=== PATIENT | female | born 1935 | race Caucasian/White ===

== ENCOUNTER → 2020-05-27 | Outpatient (REF) | payer BC, MEDICARE, OTHER ==
--- NOTE | 2020-05-31 11:35 | REP ---
SACRUM AND COCCYX: 3-VIEWS HISTORY: Low back pain. FINDINGS: AP, tube angle, and lateral views of the sacrum and coccyx show minimal narrowing of the 4-5 and 5-1 discs. No sacral lesion or displacement is seen. SI joints are intact. Coccyx is unremarkable. 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 IMPRESSION: Mild degenerative changes. No acute bony abnormality. MTDD
--- NOTE | 2020-05-31 11:38 | REP ---
LUMBOSACRAL SPINE SERIES CLINICAL: Lower back pain. TECHNIQUE: AP, lateral, bilateral oblique and cone down views of the lumbosacral spine. FINDINGS: Vertebral bodies are intact and there is no evidence for acute fracture/compression injury. [id number] multilevel degenerative changes include endplate sclerosis, osteophytosis, and hypertrophic facet changes. Findings most pronounced at the lower thoracic and L4-5, L5-S1 levels. IMPRESSION: [id number] multilevel degenerative spondylosis. No acute fracture/compression injury. MTDD
== END ==
LOC: M RAD 14:00 → EDSTATUS 07-26 16:04
PROVIDERS: ATTEND Physician Assistant
DX: M54.5 Low back pain (principal)

== ENCOUNTER → 2020-05-28 | Outpatient (REF) ==
[2020-06-18 10:06] LABS: HEMATOCRIT 42.8 % (36.0-47.0); HEMOGLOBIN 14.6 g/dl (12.0-15.5); MEAN CORPUSCULAR HGB CONC 34.1 g/dl (32.0-36.5); MEAN CORPUSCULAR VOLUME 93.9 fl (80.0-96.0); RED BLOOD COUNT 4.56 10^6/uL (4.00-5.40); WHITE BLOOD COUNT 7.8 10^3/uL (4.0-10.0)
[2020-06-18 10:07] LABS: PLATELET COUNT, AUTOMATED 348 10^3/uL (150-450)
[2020-06-18 11:34] LABS: BLOOD UREA NITROGEN 14 MG/DL (7-18); CALCIUM LEVEL 9.1 MG/DL (8.8-10.2); CARBON DIOXIDE LEVEL 29 MEQ/L (21-32); CHLORIDE LEVEL 100 MEQ/L (98-107); CREATININE FOR GFR 0.92 MG/DL (0.55-1.30); GLOMERULAR FILTRATION RATE > 60.0 (>32); GLUCOSE, FASTING 183 MG/DL (70-100); POTASSIUM SERUM 4.7 MEQ/L (3.5-5.1); SODIUM LEVEL 134 MEQ/L (136-145)
== END ==
PROVIDERS: ATTEND Physician Assistant
DX: Z86.73 Personal history of transient ischemic attack (TIA), and cerebral infarction without residual deficits (principal)

== ENCOUNTER → 2020-06-04 | Outpatient (REF) ==
[2020-06-04 12:52] LABS: HEMATOCRIT 40.9 % (36.0-47.0); HEMOGLOBIN 13.4 g/dl (12.0-15.5); MEAN CORPUSCULAR HGB CONC 32.8 g/dl (32.0-36.5); MEAN CORPUSCULAR VOLUME 94.7 fl (80.0-96.0); PLATELET COUNT, AUTOMATED 279 10^3/uL (150-450); RED BLOOD COUNT 4.32 10^6/uL (4.00-5.40); WHITE BLOOD COUNT 5.4 10^3/uL (4.0-10.0)
[2020-06-04 12:56] LABS: BLOOD UREA NITROGEN 13 MG/DL (7-18); CALCIUM LEVEL 8.6 MG/DL (8.8-10.2); CARBON DIOXIDE LEVEL 27 MEQ/L (21-32); CHLORIDE LEVEL 101 MEQ/L (98-107); CREATININE FOR GFR 0.84 MG/DL (0.55-1.30); GLOMERULAR FILTRATION RATE > 60.0 (>32); GLUCOSE, FASTING 228 MG/DL (70-100); POTASSIUM SERUM 4.6 MEQ/L (3.5-5.1); SODIUM LEVEL 135 MEQ/L (136-145)
== END ==
PROVIDERS: ATTEND Physician Assistant
DX: Z86.73 Personal history of transient ischemic attack (TIA), and cerebral infarction without residual deficits (principal)

== ENCOUNTER → 2020-07-04 | Outpatient (CLI) | payer MEDICARE, BC, OTHER ==
[2020-07-04 13:22] LABS: APPEARANCE, URINE HAZY (CLEAR); BACTERIA, URINE AUTO NEGATIVE (NEGATIVE); BILIRUBIN, URINE AUTO NEGATIVE (NEGATIVE); BLOOD, URINE BLOOD 1+ (NEGATIVE); COLOR, URINE YELLOW (YELLOW); GLUCOSE, URINE (UA) AUTO NEGATIVE (NEGATIVE); KETONE, URINE AUTO NEGATIVE (NEGATIVE); LEUKOCYTE ESTERASE, URINE AUTO 3+ (NEGATIVE); NITRITE, URINE AUTO NEGATIVE (NEGATIVE); PROTEIN, URINE AUTO NEGATIVE (NEGATIVE); RBC, URINE AUTO 4 /HPF (0-3); SPECIFIC GRAVITY URINE AUTO 1.013 (1.002-1.035); SQUAMOUS EPITHELIAL CELL UR AU 2 /HPF (0-6); UROBILINOGEN, URINE AUTO 0.2 mg/dL (0.0-2.0); WBC, URINE AUTO 23 /HPF (0-3)
[2020-07-04 13:37] LABS: HEMOGLOBIN A1c 6.9 %
[2020-07-04 14:00] LABS: ALBUMIN 3.5 GM/DL (3.2-5.2); ALT/SGPT 25 U/L (12-78); BILIRUBIN,TOTAL 0.9 MG/DL (0.2-1.0); BLOOD UREA NITROGEN 15 MG/DL (7-18); CALCIUM LEVEL 8.7 MG/DL (8.8-10.2); CARBON DIOXIDE LEVEL 26 MEQ/L (21-32); CHLORIDE LEVEL 104 MEQ/L (98-107); CHOLESTEROL LEVEL 170 MG/DL (<200); CHOLESTEROL RISK RATIO 3.035 (<5); CREATININE FOR GFR 0.89 MG/DL (0.55-1.30); FREE T4 1.32 NG/DL (0.76-1.46); GLOMERULAR FILTRATION RATE > 60.0 (>32); GLUCOSE, FASTING 134 MG/DL (70-100); HDL CHOLESTEROL 56 MG/DL (>40); LDL CHOLESTEROL 94 MG/DL (<100); NON-HDL-C 114 MG/DL; POTASSIUM SERUM 4.6 MEQ/L (3.5-5.1); SODIUM LEVEL 136 MEQ/L (136-145); TOTAL 25(OH) VITAMIN D 38.3 NG/ML (30.0-100.0); TOTAL PROTEIN 6.2 GM/DL (6.4-8.2); TRIGLYCERIDES LEVEL 101 MG/DL (<150)
== END ==
LOC: M WUC 08:59
PROVIDERS: ATTEND Physician Assistant
DX: E03.9 Hypothyroidism, unspecified (principal); E11.69 Type 2 diabetes mellitus with other specified complication

== ENCOUNTER 2025-06-18 13:13 | Emergency (ER) | payer MEDICARE, BC, OTHER ==
[~2025-06-18] VITALS: Ht 152.4 cm; Wt 87.7 kg
[2025-06-18 13:45] VITALS: TEMP 97.1
[2025-06-18] MEDS: PERCOCET 5MG/325MG TAB PO ONE (15:09)
[2025-06-18] MEDS ORDERED: PERC5TAB12 PO (16:10)
[2025-06-18 16:54] VITALS: BP 165/77; O2SAT 99
== END 2025-06-18 17:09 | disposition home or self-care (01) ==
LOC: M ED 13:45
DX: M25.551 Pain in right hip (principal); M25.561 Pain in right knee; M17.11 Unilateral primary osteoarthritis, right knee; M16.11 Unilateral primary osteoarthritis, right hip; I10 Essential (primary) hypertension; E78.5 Hyperlipidemia, unspecified; E03.9 Hypothyroidism, unspecified; Z88.0 Allergy status to penicillin; Z88.5 Allergy status to narcotic agent; Z88.6 Allergy status to analgesic agent; Z88.8 Allergy status to other drugs, medicaments and biological substances; Z79.899 Other long term (current) drug therapy

== ENCOUNTER 2025-07-12 09:43 | Inpatient (IN) | payer MEDICARE, BC ==
[~2025-07-12] VITALS: Ht 154.9 cm; Wt 81.8 kg
[~2025-07-12 09:43] MED LIST: PERC5TAB12 PO
[2025-07-12] MEDS: ACETAMINOPHEN 500 MG TAB PO ONE (11:03)
[2025-07-12] MEDS ORDERED: MAGN400T2 PO (11:14)
[2025-07-12] MEDS ORDERED: B-12100021 PO (11:14)
[2025-07-12] MEDS ORDERED: ATOR40TA75 PO (11:14)
[2025-07-12] MEDS ORDERED: MIRA3350 PO (11:14)
[2025-07-12] MEDS ORDERED: LEVO112T2 PO (11:14)
[2025-07-12] MEDS ORDERED: BRIM0.2S13 OU (11:14)
[2025-07-12] MEDS ORDERED: ACET-897 PO (11:14)
[2025-07-12] MEDS ORDERED: LISI20TA33 PO (11:14)
[2025-07-12] MEDS ORDERED: LORA-1164 PO (11:14)
[2025-07-12] MEDS ORDERED: OMEG100011 PO (11:14)
[2025-07-12] MEDS ORDERED: MONT10TA97 PO (11:14)
[2025-07-12] MEDS ORDERED: CALC600T60 PO (11:14)
[2025-07-12] MEDS ORDERED: DULO1CAP5 PO (11:14)
[2025-07-12] MEDS ORDERED: HOME MED LIST COMPLETE! XX SCH (11:15)
[2025-07-12 11:19] LABS: BASO # 0.0 10^3/uL (0.0-0.2); BASO % 0.5 % (0.0-1.0); EOS # 0.2 10^3/uL (0.0-0.5); EOS % 2.5 % (0.0-3.0); LYMPH # 1.4 10^3/uL (1.5-5.0); LYMPH % 21.6 % (24.0-44.0); MONO # 0.9 10^3/uL (0.0-0.8); MONO % 14.5 % (2.0-8.0); NEUTROPHILS # 3.8 10^3/uL (1.5-8.5); NEUTROPHILS % 60.4 % (36.0-66.0); PLATELET COUNT, AUTOMATED 282 10^3/uL (150-450)
[2025-07-12 11:47] LABS: ALT/SGPT 21.0 U/L (7.0-40); AST/SGOT 20.0 U/L (<34); CALCIUM LEVEL 8.9 MG/DL (8.3-10.6); CARBON DIOXIDE LEVEL 28.0 MMOL/L (20-31); CHLORIDE LEVEL 92.0 MMOL/L (98-107); CREATININE FOR GFR 0.6 MG/DL (0.55-1.30); GLOMERULAR FILTRATION RATE 85.8 (>32); POTASSIUM SERUM 4.6 MMOL/L (3.5-5.1); SODIUM LEVEL 127.0 MMOL/L (136-145)
[2025-07-12] MEDS ORDERED: CLOP75TA2 PO (14:38)
[2025-07-12] MEDS ORDERED: VITA200020 PO (14:38)
[2025-07-12] MEDS: NS (Normal Saline) 0.9% 1,000 ML IV SCH (15:01)
[2025-07-12 15:38] LABS: OSMOLALITY SERUM 267.0 MOSM/KG (280-301)
[2025-07-12 15:44] LABS: FREE T4 1.73 NG/DL (0.89-1.76)
[2025-07-12] MEDS: ACETAMINOPHEN 500 MG TAB PO SCH (16:00)
[2025-07-12] MEDS: CLOPIDOGREL 75 MG TAB PO SCH (16:19)
[2025-07-12 16:20] VITALS: BP 140/84; TEMP 96.6; O2SAT 99
[2025-07-12] MEDS: VITAMIN D 1,000 INTERNATIONAL UNITS TABLET PO SCH (17:03)
[2025-07-12] MEDS: MONTELUKAST 10 MG TAB PO SCH (17:04)
[2025-07-12] MEDS: LORATADINE 10 MG TAB PO SCH (17:04)
[2025-07-12] MEDS: OMEGA-3 1000 MG CAPSULE PO SCH (17:04)
[2025-07-12] MEDS: CYANOCOBALAMIN 500 MCG TAB PO SCH (17:04)
[2025-07-12] MEDS: LIDOCAINE 5% PATCH TD SCH ×2 (17:05)
[2025-07-12 19:45] VITALS: BP 140/81; TEMP 97; O2SAT 98
[2025-07-12] MEDS: ENOXAPARIN 40 MG/0.4 ML SYRINGE (J1650 PER 10MG) SC SCH (20:23)
[2025-07-12] MEDS: MAGNESIUM OXIDE 400 MG TAB PO SCH (20:25)
[2025-07-12] MEDS: ATORVASTATIN 20 MG TAB PO SCH (20:25)
[2025-07-13 03:57] VITALS: BP 168/95; TEMP 97.2; O2SAT 97
[2025-07-13 04:13] VITALS: BP 152/94
[2025-07-13] MEDS: LEVOTHYROXINE 112 MCG TABLET (0.112 MG) PO SCH (05:52)
[2025-07-13 06:50] LABS: PLATELET COUNT, AUTOMATED 277 10^3/uL (150-450)
[2025-07-13 07:19] LABS: CALCIUM LEVEL 8.4 MG/DL (8.3-10.6); CARBON DIOXIDE LEVEL 26.0 MMOL/L (20-31); CHLORIDE LEVEL 94.0 MMOL/L (98-107); CREATININE FOR GFR 0.57 MG/DL (0.55-1.30); GLOMERULAR FILTRATION RATE 86.8 (>32); POTASSIUM SERUM 4.3 MMOL/L (3.5-5.1); SODIUM LEVEL 128.0 MMOL/L (136-145)
[2025-07-13] MEDS: NS (Normal Saline) 0.9% 1,000 ML IV SCH (09:29)
[2025-07-13] MEDS: SENNA 8.6 MG TAB PO SCH (09:29)
[2025-07-13] MEDS: MIRALAX *UNIT DOSE* 17 GM PACKET PO PRN (09:29)
[2025-07-13 10:07] LABS: SODIUM,RANDOM URINE 120.0 MMOL/L
[2025-07-13] MEDS: amLODIPine 10 MG TAB PO SCH (11:40)
[2025-07-13] MEDS: SODIUM CHLORIDE 1 GM TAB PO SCH (11:40)
[2025-07-13 12:00] VITALS: BP 161/90; TEMP 97.3; O2SAT 99
[2025-07-13 16:44] VITALS: BP 146/80
[2025-07-13 20:36] VITALS: BP 167/90; TEMP 96.8; O2SAT 95
[2025-07-13] MEDS: BRIMONIDINE 0.2% OU SCH (21:42)
[2025-07-13 23:07] VITALS: O2SAT 96
[2025-07-14 03:25] VITALS: O2SAT 84
[2025-07-14 03:30] VITALS: O2SAT 95
[2025-07-14 07:09] LABS: BASO # 0.0 10^3/uL (0.0-0.2); BASO % 0.6 % (0.0-1.0); EOS # 0.3 10^3/uL (0.0-0.5); EOS % 5.4 % (0.0-3.0); LYMPH # 1.7 10^3/uL (1.5-5.0); LYMPH % 34.1 % (24.0-44.0); MONO # 0.7 10^3/uL (0.0-0.8); MONO % 13.3 % (2.0-8.0); NEUTROPHILS # 2.3 10^3/uL (1.5-8.5); NEUTROPHILS % 46.2 % (36.0-66.0); PLATELET COUNT, AUTOMATED 285 10^3/uL (150-450)
[2025-07-14 07:31] LABS: CALCIUM LEVEL 8.3 MG/DL (8.3-10.6); CARBON DIOXIDE LEVEL 27.0 MMOL/L (20-31); CHLORIDE LEVEL 95.0 MMOL/L (98-107); CREATININE FOR GFR 0.55 MG/DL (0.55-1.30); GLOMERULAR FILTRATION RATE 87.6 (>32); POTASSIUM SERUM 4.5 MMOL/L (3.5-5.1); SODIUM LEVEL 129.0 MMOL/L (136-145)
[2025-07-14] MEDS: SODIUM CHLORIDE 1 GM TAB PO SCH (09:26)
[2025-07-14] MEDS: LOSARTAN 25 MG TAB PO SCH (09:27)
[2025-07-14 09:32] VITALS: O2SAT 97
[2025-07-14 11:45] VITALS: BP 155/83; TEMP 97.2; O2SAT 96
[2025-07-14] MEDS ORDERED: **hydrALAZINE HCL** 25 MG TAB PO PRN (11:45)
[2025-07-14 20:09] VITALS: BP 154/83; TEMP 97; O2SAT 96
[2025-07-15 03:44] VITALS: BP 165/95; TEMP 97; O2SAT 95
[2025-07-15 03:55] VITALS: BP 142/82
[2025-07-15 07:59] LABS: CALCIUM LEVEL 8.5 MG/DL (8.3-10.6); CARBON DIOXIDE LEVEL 27.0 MMOL/L (20-31); CHLORIDE LEVEL 95.0 MMOL/L (98-107); CREATININE FOR GFR 0.55 MG/DL (0.55-1.30); GLOMERULAR FILTRATION RATE 87.6 (>32); POTASSIUM SERUM 4.6 MMOL/L (3.5-5.1); SODIUM LEVEL 131.0 MMOL/L (136-145)
[2025-07-15 12:00] VITALS: BP 146/88; TEMP 96.8; O2SAT 94
[2025-07-15 20:00] VITALS: BP 156/88; TEMP 97.2; O2SAT 96
[2025-07-16 04:00] VITALS: BP 149/84; TEMP 97.5; O2SAT 94
[2025-07-16 07:12] LABS: CALCIUM LEVEL 8.4 MG/DL (8.3-10.6); CARBON DIOXIDE LEVEL 26.0 MMOL/L (20-31); CHLORIDE LEVEL 94.0 MMOL/L (98-107); CREATININE FOR GFR 0.53 MG/DL (0.55-1.30); GLOMERULAR FILTRATION RATE 88.4 (>32); POTASSIUM SERUM 4.3 MMOL/L (3.5-5.1); SODIUM LEVEL 129.0 MMOL/L (136-145)
[2025-07-16 12:00] VITALS: BP 138/78; TEMP 97; O2SAT 94
[2025-07-16 20:00] VITALS: BP 131/74; TEMP 97.3; O2SAT 94
[2025-07-17 04:00] VITALS: BP 120/75; TEMP 97.2; O2SAT 96
[2025-07-17 07:32] LABS: CALCIUM LEVEL 8.4 MG/DL (8.3-10.6); CARBON DIOXIDE LEVEL 26.0 MMOL/L (20-31); CHLORIDE LEVEL 94.0 MMOL/L (98-107); CREATININE FOR GFR 0.55 MG/DL (0.55-1.30); GLOMERULAR FILTRATION RATE 87.6 (>32); POTASSIUM SERUM 4.4 MMOL/L (3.5-5.1); SODIUM LEVEL 129.0 MMOL/L (136-145)
[2025-07-17 12:00] VITALS: BP 145/85; TEMP 97.3; O2SAT 97
[2025-07-17] MEDS: predniSONE 20 MG TAB PO ONE (13:06)
[2025-07-17] MEDS: TRIAMCINOLONE ACET 0.1% OINTMENT 80GM TOP SCH (14:43)
[2025-07-17 19:58] VITALS: BP 127/80; TEMP 97; O2SAT 95
[2025-07-18 03:28] VITALS: BP 148/77; TEMP 97.2; O2SAT 96
[2025-07-18] MEDS: predniSONE 20 MG TAB PO SCH (09:57)
[2025-07-18] MEDS ORDERED: HYDR-643 PO (11:13)
[2025-07-18] MEDS ORDERED: PRED20TA PO (11:13)
[2025-07-18] MEDS ORDERED: AMLO1TAB25 PO (11:13)
[2025-07-18] MEDS ORDERED: SENN18TA PO (11:13)
[2025-07-18] MEDS ORDERED: TRIA1OI80 TOP (11:13)
[2025-07-18] MEDS ORDERED: SODI1TAB6 PO (11:13)
[2025-07-18] MEDS ORDERED: LOSA-527 PO (11:15)
[2025-07-18 11:42] VITALS: BP 168/91; TEMP 97.8; O2SAT 97
[2025-07-18 12:06] VITALS: BP 125/73
[2025-07-18 12:08] VITALS: BP 125/73
== END 2025-07-18 12:59 | disposition home health service (06) | DRG 554 ==
LOC: EDBD 09:43 → M ED 09:43 → M ED INP 09:44 → UNDOADMOB 14:50 → M ED INP 14:50 → INTOOBSV 14:50 → M ED INP 16:21 → M MSPAV 16:21 → OBSVTOIN 07-17 11:50
PROVIDERS: ADMIT Internal Medicine; ATTEND General Practice
DX: M16.11 Unilateral primary osteoarthritis, right hip (principal); E87.1 Hypo-osmolality and hyponatremia; E22.2 Syndrome of inappropriate secretion of antidiuretic hormone; E03.9 Hypothyroidism, unspecified; I10 Essential (primary) hypertension; M17.11 Unilateral primary osteoarthritis, right knee; R26.89 Other abnormalities of gait and mobility; R29.6 Repeated falls; E78.5 Hyperlipidemia, unspecified; F32.A Depression, unspecified; G89.29 Other chronic pain; G47.33 Obstructive sleep apnea (adult) (pediatric); M25.551 Pain in right hip; M25.561 Pain in right knee; E55.9 Vitamin D deficiency, unspecified; E53.8 Deficiency of other specified B group vitamins; L23.3 Allergic contact dermatitis due to drugs in contact with skin; Z66 Do not resuscitate; T41.3X5A Adverse effect of local anesthetics, initial encounter; Z79.890 Hormone replacement therapy; Z79.899 Other long term (current) drug therapy; Z88.0 Allergy status to penicillin; Z88.5 Allergy status to narcotic agent; Z88.6 Allergy status to analgesic agent; Z88.8 Allergy status to other drugs, medicaments and biological substances; Z79.02 Long term (current) use of antithrombotics/antiplatelets; Z86.718 Personal history of other venous thrombosis and embolism; Z86.73 Personal history of transient ischemic attack (TIA), and cerebral infarction without residual deficits

== ENCOUNTER → 2025-07-23 | Outpatient (REF) | payer MEDICARE, BC, OTHER ==
[~2025-07-23] MED LIST changes: +ACET-897 PO; +AMLO1TAB25 PO; +ATOR40TA75 PO; +B-12100021 PO; +BRIM0.2S13 OU; +CALC600T60 PO; +CLOP75TA2 PO; +DULO1CAP5 PO; +HYDR-643 PO; +LEVO112T2 PO; +LISI20TA33 PO; +LORA-1164 PO; +LOSA-527 PO; +MAGN400T2 PO; +MIRA3350 PO; +MONT10TA97 PO; +OMEG100011 PO; +PRED20TA PO; +SENN18TA PO; +SODI1TAB6 PO; +TRIA1OI80 TOP; +VITA200020 PO
[2025-07-23 18:15] LABS: BASO # 0.0 10^3/uL (0.0-0.2); BASO % 0.4 % (0.0-1.0); EOS # 0.2 10^3/uL (0.0-0.5); EOS % 2.3 % (0.0-3.0); LYMPH # 2.5 10^3/uL (1.5-5.0); LYMPH % 24.9 % (24.0-44.0); MONO # 1.1 10^3/uL (0.0-0.8); MONO % 11.1 % (2.0-8.0); NEUTROPHILS # 6.0 10^3/uL (1.5-8.5); NEUTROPHILS % 60.4 % (36.0-66.0); PLATELET COUNT, AUTOMATED 400 10^3/uL (150-450)
[2025-07-23 18:35] LABS: ESTIMATED AVERAGE GLUCOSE 151.0 MG/DL (60-110)
[2025-07-23 18:46] LABS: APPEARANCE, URINE CLEAR (CLEAR); BACTERIA, URINE AUTO NEGATIVE (NEGATIVE); BILIRUBIN, URINE AUTO NEGATIVE (NEGATIVE); BLOOD, URINE BLOOD NEGATIVE (NEGATIVE); GLUCOSE, URINE (UA) AUTO NEGATIVE (NEGATIVE); KETONE, URINE AUTO NEGATIVE (NEGATIVE); LEUKOCYTE ESTERASE, URINE AUTO 3+ (NEGATIVE); NITRITE, URINE AUTO NEGATIVE (NEGATIVE); PROTEIN, URINE AUTO NEGATIVE (NEGATIVE); RBC, URINE AUTO 2 /HPF (0-3); SPECIFIC GRAVITY URINE AUTO 1.009 (1.002-1.035); SQUAMOUS EPITHELIAL CELL UR AU 1 /HPF (0-6); UROBILINOGEN, URINE AUTO 0.2 mg/dL (0.0-2.0); WBC, URINE AUTO 20 /HPF (0-3)
[2025-07-23 18:49] LABS: ALT/SGPT 21.0 U/L (7.0-40); AST/SGOT 15.0 U/L (<34); CALCIUM LEVEL 9.4 MG/DL (8.3-10.6); CARBON DIOXIDE LEVEL 25.0 MMOL/L (20-31); CHLORIDE LEVEL 92.0 MMOL/L (98-107); CHOLESTEROL LEVEL 164.0 MG/DL (<200); CHOLESTEROL RISK RATIO 2.28 (<5); CREATININE FOR GFR 0.61 MG/DL (0.55-1.30); GLOMERULAR FILTRATION RATE 85.4 (>32); LDL CHOLESTEROL 53.6 MG/DL (<100); NON-HDL-C 92.2 MG/DL; POTASSIUM SERUM 4.8 MMOL/L (3.5-5.1); SODIUM LEVEL 129.0 MMOL/L (136-145); TOTAL 25(OH) VITAMIN D 47.2 NG/ML (20.0-100.0); TRIGLYCERIDES LEVEL 193.0 MG/DL (<150)
[2025-07-23 18:50] LABS: VITAMIN B12 LEVEL 759.0 PG/ML (211-911)
== END ==
LOC: M SFHCLERA 13:03
PROVIDERS: ATTEND Internal Medicine
DX: I10 Essential (primary) hypertension (principal); E03.8 Other specified hypothyroidism; Z91.81 History of falling; Z79.899 Other long term (current) drug therapy

== ENCOUNTER → 2025-08-07 | Outpatient (CLI) | payer MEDICARE, BC, OTHER | LOC: M SOG 07:29 | PROVIDERS: ATTEND Orthopaedic Surgery | DX: M25.561 Pain in right knee (principal) ==

== ENCOUNTER → 2025-08-08 | Outpatient (REF) | payer MEDICARE, BC, OTHER ==
[~2025-08-08] MED LIST changes: +LOSA25TA13 PO; +METF-838 PO; +MOUKOT60 MT; +NYST10006 TOP; +SENN8.6T28 PO
[2025-08-08 13:18] LABS: CALCIUM LEVEL 9.2 MG/DL (8.3-10.6); CARBON DIOXIDE LEVEL 28.0 MMOL/L (20-31); CHLORIDE LEVEL 96.0 MMOL/L (98-107); CREATININE FOR GFR 0.65 MG/DL (0.55-1.30); GLOMERULAR FILTRATION RATE 84.1 (>32); POTASSIUM SERUM 4.3 MMOL/L (3.5-5.1); SODIUM LEVEL 135.0 MMOL/L (136-145)
== END ==
PROVIDERS: ATTEND Internal Medicine
DX: E87.1 Hypo-osmolality and hyponatremia (principal)

== ENCOUNTER → 2025-08-17 | Outpatient (REF) | payer MEDICARE, BC, OTHER | PROVIDERS: ATTEND Internal Medicine | DX: E87.1 Hypo-osmolality and hyponatremia (principal); Z53.8 Procedure and treatment not carried out for other reasons ==

== ENCOUNTER → 2025-08-22 | Outpatient (REF) | payer MEDICARE, BC, OTHER | PROVIDERS: ATTEND Internal Medicine | DX: E11.65 Type 2 diabetes mellitus with hyperglycemia (principal); Z53.8 Procedure and treatment not carried out for other reasons ==

== ENCOUNTER → 2025-08-22 | Outpatient (REF) | payer MEDICARE, BC, OTHER ==
[~2025-08-22] MED LIST changes: -LOSA25TA13 PO; -METF-838 PO; -MOUKOT60 MT; -NYST10006 TOP; -SENN8.6T28 PO
== END ==
PROVIDERS: ATTEND Internal Medicine
DX: E87.1 Hypo-osmolality and hyponatremia (principal)

== ENCOUNTER → 2025-08-24 | Outpatient (REF) | payer MEDICARE, BC, OTHER ==
[2025-08-24 13:45] LABS: CREATININE, URINE 41.3 MG/DL; MALB URINE SIEMENS 3.0 MG/L
== END ==
PROVIDERS: ATTEND Internal Medicine
DX: E87.1 Hypo-osmolality and hyponatremia (principal); E11.65 Type 2 diabetes mellitus with hyperglycemia

== ENCOUNTER 2025-09-22 12:57 | Inpatient (IN) | payer MEDICARE, BC, OTHER ==
[2025-09-22 13:47] LABS: BASO # 0.0 10^3/uL (0.0-0.2); BASO % 0.5 % (0.0-1.0); EOS # 0.2 10^3/uL (0.0-0.5); EOS % 2.1 % (0.0-3.0); LYMPH # 1.3 10^3/uL (1.5-5.0); LYMPH % 15.2 % (24.0-44.0); MONO # 1.0 10^3/uL (0.0-0.8); MONO % 12.1 % (2.0-8.0); NEUTROPHILS # 6.0 10^3/uL (1.5-8.5); NEUTROPHILS % 69.4 % (36.0-66.0); PLATELET COUNT, AUTOMATED 330 10^3/uL (150-450)
[2025-09-22 14:14] LABS: ALT/SGPT 19.0 U/L (7.0-40); AST/SGOT 24.0 U/L (<34); CALCIUM LEVEL 9.0 MG/DL (8.3-10.6); CARBON DIOXIDE LEVEL 25.0 MMOL/L (20-31); CHLORIDE LEVEL 92.0 MMOL/L (98-107); CK-MB VALUE MASS 4.9 NG/ML (<3.6); CREATININE FOR GFR 0.52 MG/DL (0.55-1.30); GLOMERULAR FILTRATION RATE 88.8 (>32); POTASSIUM SERUM 4.5 MMOL/L (3.5-5.1); SODIUM LEVEL 127.0 MMOL/L (136-145)
[2025-09-22 14:19] LABS: CPK CREATINE PHOSPHOKINASE 142.0 U/L (34-145); MB/CK RELATIVE INDEX 3.45 (< OR =4)
[2025-09-22 14:25] LABS: KETONE, URINE AUTO RFX NEGATIVE (NEGATIVE); LEUKOCYTE ESTERASE UR AUTO RFX NEGATIVE (NEGATIVE); NITRITE, URINE AUTO RFX NEGATIVE (NEGATIVE); RBC, URINE AUTO RFX 0 /HPF (0-3); SQUAM EPITHELIAL CELL UR AURFX 0 /HPF (0-6); WBC, URINE AUTO RFX 0 /HPF (0-3)
[2025-09-22] MEDS ORDERED: METF-838 PO (14:45)
[2025-09-22] MEDS ORDERED: AMLO1TAB25 PO (14:45)
[2025-09-22] MEDS ORDERED: HOME MED LIST COMPLETE! XX SCH (14:45)
[2025-09-22] MEDS ORDERED: LOSA25TA13 PO (14:45)
[2025-09-22] MEDS ORDERED: SENN8.6T28 PO (14:45)
[2025-09-22 14:46] LABS: FREE T4 1.51 NG/DL (0.89-1.76)
[2025-09-22 15:27] LABS: CK-MB VALUE MASS 5.4 NG/ML (<3.6)
[2025-09-22 15:30] LABS: CPK CREATINE PHOSPHOKINASE 129.0 U/L (34-145); MB/CK RELATIVE INDEX 4.18 (< OR =4)
[2025-09-22 16:29] LABS: OSMOLALITY SERUM 270.0 MOSM/KG (280-301)
[2025-09-22] MEDS ORDERED: SALIVA SUBSTITUTE BTL MT PRN (16:55)
[2025-09-22] MEDS ORDERED: MIRALAX *UNIT DOSE* 17 GM PACKET PO PRN (16:55)
[2025-09-22] MEDS ORDERED: SENNA 8.6 MG TAB PO PRN (16:55)
[2025-09-22] MEDS ORDERED: ISOVUE-370 76% 100 ML VIAL As Ordered ONE (17:00)
[2025-09-22] MEDS: SODIUM CHLORIDE 1 GM TAB PO SCH (17:18)
[2025-09-22] MEDS: ACETAMINOPHEN 500 MG TAB PO PRN (19:33)
[2025-09-22] MEDS: MAGNESIUM OXIDE 400 MG TAB PO SCH (20:36)
[2025-09-22] MEDS: ATORVASTATIN 20 MG TAB PO SCH (20:36)
[2025-09-22] MEDS: BRIMONIDINE 0.1% OPHTH SOLN 5 ML OU SCH (20:37)
[2025-09-22] MEDS: HEPARIN SOD 5000 UNITS/ML 1 ML VIAL/SYRINGE SC SCH (20:37)
[2025-09-23 03:30] VITALS: BP 171/81; TEMP 97.9; O2SAT 98
[2025-09-23 05:46] LABS: PLATELET COUNT, AUTOMATED 301 10^3/uL (150-450)
[2025-09-23 06:09] LABS: CALCIUM LEVEL 8.4 MG/DL (8.3-10.6); CARBON DIOXIDE LEVEL 26.0 MMOL/L (20-31); CHLORIDE LEVEL 93.0 MMOL/L (98-107); CREATININE FOR GFR 0.51 MG/DL (0.55-1.30); GLOMERULAR FILTRATION RATE 89.2 (>32); POTASSIUM SERUM 4.1 MMOL/L (3.5-5.1); SODIUM LEVEL 127.0 MMOL/L (136-145)
[2025-09-23] MEDS: LEVOTHYROXINE 112 MCG TABLET (0.112 MG) PO SCH (06:59)
[2025-09-23] MEDS: amLODIPine 10 MG TAB PO SCH (10:11)
[2025-09-23] MEDS: LOSARTAN 25 MG TAB PO SCH (10:11)
[2025-09-23] MEDS: SODIUM CHLORIDE 1 GM TAB PO SCH (10:12)
[2025-09-23] MEDS: MONTELUKAST 10 MG TAB PO SCH (10:12)
[2025-09-23 12:22] VITALS: BP 138/71; TEMP 97.9; O2SAT 94
[2025-09-23 14:05] LABS: SODIUM,RANDOM URINE 167.0 MMOL/L
[2025-09-23 19:06] VITALS: O2SAT 97
[2025-09-23 21:01] VITALS: BP 152/70; TEMP 98.2; O2SAT 95
[2025-09-23] MEDS: NYSTATIN 100,000 UNITS/GM TOPICAL PWD 15 GM TOP SCH (22:00)
[2025-09-24] VITALS (9 sets, daily range): BP systolic 126–165; BP diastolic 64–76; TEMP 97.7–98.9; O2SAT 93–99
[2025-09-24 06:31] LABS: PLATELET COUNT, AUTOMATED 310 10^3/uL (150-450)
[2025-09-24 06:41] LABS: CALCIUM LEVEL 8.5 MG/DL (8.3-10.6); CARBON DIOXIDE LEVEL 26.0 MMOL/L (20-31); CHLORIDE LEVEL 100.0 MMOL/L (98-107); CREATININE FOR GFR 0.56 MG/DL (0.55-1.30); GLOMERULAR FILTRATION RATE 87.2 (>32); POTASSIUM SERUM 4.2 MMOL/L (3.5-5.1); SODIUM LEVEL 132.0 MMOL/L (136-145)
[2025-09-24] MEDS: CLOPIDOGREL 75 MG TAB PO SCH (09:24)
[2025-09-25] VITALS (8 sets, daily range): BP systolic 103–140; BP diastolic 55–94; TEMP 98–99; O2SAT 80–98
[2025-09-25 06:20] LABS: PLATELET COUNT, AUTOMATED 288 10^3/uL (150-450)
[2025-09-25 06:39] LABS: CALCIUM LEVEL 8.2 MG/DL (8.3-10.6); CARBON DIOXIDE LEVEL 26.0 MMOL/L (20-31); CHLORIDE LEVEL 99.0 MMOL/L (98-107); CREATININE FOR GFR 0.5 MG/DL (0.55-1.30); GLOMERULAR FILTRATION RATE 89.6 (>32); POTASSIUM SERUM 4.2 MMOL/L (3.5-5.1); SODIUM LEVEL 132.0 MMOL/L (136-145)
[2025-09-25] MEDS ORDERED: MOUKOT60 MT (11:32)
[2025-09-25] MEDS ORDERED: NYST10006 TOP (11:32)
[2025-09-25] MEDS ORDERED: SODI1TAB6 PO (11:32)
== END 2025-09-25 14:18 | DRG 312 ==
LOC: M ED 12:57 → EDBD 12:57 → M ED INP 16:49 → M MSPAV 09-23 03:25
PROVIDERS: ADMIT Student in an Organized Health Care Education/Training Program; ATTEND Student in an Organized Health Care Education/Training Program
DX: I95.1 Orthostatic hypotension (principal); G93.41 Metabolic encephalopathy; E22.2 Syndrome of inappropriate secretion of antidiuretic hormone; R29.6 Repeated falls; R26.89 Other abnormalities of gait and mobility; M16.11 Unilateral primary osteoarthritis, right hip; M17.11 Unilateral primary osteoarthritis, right knee; E03.9 Hypothyroidism, unspecified; I10 Essential (primary) hypertension; F32.A Depression, unspecified; K11.7 Disturbances of salivary secretion; E55.9 Vitamin D deficiency, unspecified; E53.8 Deficiency of other specified B group vitamins; Z66 Do not resuscitate; H40.9 Unspecified glaucoma; K59.00 Constipation, unspecified; G47.33 Obstructive sleep apnea (adult) (pediatric); S00.93XA Contusion of unspecified part of head, initial encounter; Z79.02 Long term (current) use of antithrombotics/antiplatelets; Z79.899 Other long term (current) drug therapy; Z88.0 Allergy status to penicillin; Z88.6 Allergy status to analgesic agent; Z88.5 Allergy status to narcotic agent; Z88.4 Allergy status to anesthetic agent; Z88.8 Allergy status to other drugs, medicaments and biological substances; Z86.718 Personal history of other venous thrombosis and embolism; W18.30XA Fall on same level, unspecified, initial encounter; Y92.192 Bathroom in other specified residential institution as the place of occurrence of the external cause; Y93.89 Activity, other specified; Y99.8 Other external cause status

== ENCOUNTER → 2025-10-01 | Outpatient (REF) | payer MEDICARE, BC, OTHER ==
[~2025-10-01] MED LIST changes: +LOSA25TA13 PO; +METF-838 PO; +MOUKOT60 MT; +NYST10006 TOP; +SENN8.6T28 PO
[2025-10-01 18:22] LABS: CALCIUM LEVEL 9.4 MG/DL (8.3-10.6); CARBON DIOXIDE LEVEL 29.0 MMOL/L (20-31); CHLORIDE LEVEL 95.0 MMOL/L (98-107); CREATININE FOR GFR 0.57 MG/DL (0.55-1.30); GLOMERULAR FILTRATION RATE 86.8 (>32); POTASSIUM SERUM 5.0 MMOL/L (3.5-5.1); SODIUM LEVEL 132.0 MMOL/L (136-145)
== END ==
LOC: M SFHCLERA 13:13
PROVIDERS: ATTEND Internal Medicine
DX: E87.1 Hypo-osmolality and hyponatremia (principal)